=== PATIENT | female | born 1980 | race Two or more races ===

== ENCOUNTER 2016-08-09 23:02 | Inpatient (IN) | payer OTHER, MEDICAID ==
[2016-08-10] MEDS ORDERED: IV START KIT ONE (00:35)
[2016-08-10] MEDS ORDERED: OXYTOCIN IN LR 500 ML IV ONE (00:35)
[2016-08-10] MEDS ORDERED: OXYTOCIN 10 UNITS/ML VIAL ONE (00:35)
[2016-08-10] MEDS ORDERED: LACTATED RINGERS 1,000 ML ONE (00:36)
[2016-08-10] MEDS ORDERED: LIDOCAINE 1% (PRES FREE) 30 ML VIAL ONE (00:36)
[2016-08-10] MEDS ORDERED: PUMP TUBING ONE (00:36)
[2016-08-10] MEDS ORDERED: MINERAL OIL 25 ML BOT ONE (00:36)
[2016-08-10] MEDS ORDERED: LIDOCAINE Viscous 2% 15 ML UDCUP ONE (00:36)
[2016-08-10 01:46] VITALS: BMI 28.5
[2016-08-10 01:52] LABS: HEMATOCRIT 38.8 % (37.0-47.0); HEMOGLOBIN 12.6 gm/l (12.0-16.0); MEAN CORPUSCULAR HEMOGLOBIN 29.2 pg (27.0-31.0); MEAN CORPUSCULAR HGB CONC 32.5 g/dl (33.0-37.0); RED CELL DISTRIBUTION WIDTH 15.3 % (11.5-14.5)
[2016-08-10] MEDS: LACTATED RINGERS 1,000 ML IV PRN ×2 (02:00→07:42)
[2016-08-10] MEDS ORDERED: FENTANYL 100 MCG/2 ML VIAL IV ONE (04:00)
[2016-08-10] MEDS ORDERED: FENTANYL/ROPIVACAINE EPIDURAL 250 ML EP ONE ×2 (04:01→07:09)
[2016-08-10] MEDS ORDERED: FENTANYL/ROPIVACAINE EPIDURAL 250 ML EP SCH (06:00)
[2016-08-10] MEDS ORDERED: FENTANYL 100 MCG/2 ML VIAL IV PRN (06:09)
--- NOTE | 2016-08-10 06:35 | PCMAN ---
OB Admission Note - History : 4 Term: 2 : 0 Abortions (S&E): 1 Livin Gestational Age (weeks): 39 Days (#/7): 0 Admit Cervical Dilation:: 5 Admit Cervical Effacement (%):: 80 Admit Station:: -1 Admit Presentaton:: vtx Membrane Status: Intact Rupture (Date): 08/10/16 Rupture (Time): 06:05 Membranes Comment:: clear Labor Onset (Date): 08/09/16 Labor Onset (Time): 02:20 Contractions: Yes Contraction Frequency:: 1.5-2 Heart Rate:: 140 Status:: category 1-2 EFW:: 7 Summary of Course:: She had history of miscarriage in 2016 and some early spotting during this so she was ultrasounded at 5 weeks and no heart tones were seen, repeated 11 days later and heart tones were seen. Due date predicted at by the first viable US and confirmed by subsequent US so would use that for dating. She had some contractions at 34 1/2 weeks of that required her to be transferred to [facility] and she received 2 doses of Betamethasone with that incident. FFN was negative but her cervical length was abnormal and it felt like her cervix was changing with those contractions resulting in the transfer. also complicated by Iron deficiency anemia requiring Iron infusion. - Labs Blood Type: A (+) positive Hct/Hgb:: 38.8/12.6 Rubella Status: Immune GBS Status: Negative Abnormal Labs: None (1 HR GTT Glucose 109) - Physical Exam General: Afebrile, No Acute Distress Psych/Mental Status: Mood/Affect Appropriate, Judgment/Insight Intact Neurological: Grossly Intact, Alert, Oriented x 4, Normal Speech, Normal Reflexes, Cranial Nerves 3-12 Intact HEENT: Atraumatic, PERRLA, EOMI, Mucous membr. moist/pink Lungs: Clear to Auscultation Bilaterally Cardiovascular: Regular Rate and Rhythm, No Murmur Abdomen: Normal Bowel Sounds Genitourinary: Normal Female Genitalia Extremities: Full ROM DTR: Patellar (L): 2+ (Brisk, Normal), Patellar (R): 2+ (Brisk, Normal) Skin: Normal Color, Warm, Dry, Intact, No Rash - Problems (1) with 39 completed weeks gestation Status: Acute Code: Z3A.39 Assessment/Plan: in early labor. Expect (2) Anemia affecting in second trimester Status: Acute Code: O99.012 Assessment/Plan: improved on admission CBC.
[2016-08-10] MEDS ORDERED: EPIDURAL PUMP SET ONE (07:08)
[2016-08-10] MEDS ORDERED: EPIDURAL PROCEDURE TRAY ONE (07:08)
[2016-08-10] MEDS ORDERED: EPHEDRINE SULFATE 50 MG/ML 1ML VIAL IV PRN (07:20)
[2016-08-10] MEDS ORDERED: SODIUM CHLORIDE 0.9% 500 ML IV PRN (07:20)
[2016-08-10] MEDS ORDERED: LACTATED RINGERS 1,000 ML IV SCH (07:20)
[2016-08-10] MEDS ORDERED: NALBUPHINE HCL 20 MG/ML AMP IV PRN (07:20)
[2016-08-10] MEDS ORDERED: ONDANSETRON 4 MG/2ML 2 ML VIAL IV PRN (07:20)
[2016-08-10] MEDS ORDERED: LACTATED RINGERS 500 ML IV PRN (07:20)
[2016-08-10] MEDS ORDERED: NALOXONE HCL 0.4 MG/ML VIAL IV PRN (07:20)
[2016-08-10] MEDS ORDERED: DIPHENHYDRAMINE HCL 50 MG/1 ML VIAL IV PRN (07:20)
[2016-08-10] MEDS ORDERED: METOCLOPRAMIDE HCL 5 MG/ML 2ML VIAL IV PRN (07:20)
--- NOTE | 2016-08-10 10:21 | PCMDEL ---
Delivery Note - Labor 1st stage (hr/min):: 3 hr/31 min 2nd stage (hr/min):: 14 min 3rd stage (hr/min):: 6 min Total (hr/min):: 3 hr/51 min Pushed (hr/min):: 8 min - Delivery Delivery (Date): 08/10/16 Delivery (Time): 09:33 Infant Gender: Female Presentation: Cephalic Position: OA Umbilical Cord: 3 Vessel Delayed Cord Clamping:: > 3 min 1 Minute Total: 9 5 Minute Total: 9 Placenta:: intact EBL:: 300 ml Perineum:: intact Suture:: N/A Anesthesia/Meds:: Epidural Length ROM:: 3 hr/ 31 min Comments:: Beautiful, uncomplicated vaginal delivery
[2016-08-10] MEDS ORDERED: OXYCODONE HCL 5 MG TABLET PO PRN (10:35)
[2016-08-10] MEDS ORDERED: LANOLIN 50 APPLIC/7G TUBE TP PRN (10:35)
[2016-08-10] MEDS ORDERED: BENZOCAINE/MENTHOL 60 APPLIC/BOT TP PRN (10:35)
[2016-08-10] MEDS ORDERED: DOCUSATE SODIUM 100 MG CAPSULE PO PRN (10:35)
[2016-08-10] MEDS ORDERED: ACETAMINOPHEN 325 MG TABLET PO PRN (10:35)
[2016-08-10] MEDS ORDERED: CALCIUM CARBONATE 500 MG TAB.CHEW PO PRN (10:35)
[2016-08-10] MEDS: IBUPROFEN 800 MG TABLET PO PRN (17:51)
[2016-08-10] MEDS: OXYCODONE/ACETAMINOPHEN 5/325 MG TABLET PO PRN (19:34)
[2016-08-11] MEDS: OXYCODONE/ACETAMINOPHEN 5/325 MG TABLET PO PRN (05:21)
[2016-08-11] MEDS: IBUPROFEN 800 MG TABLET PO PRN (05:21)
[2016-08-11 06:50] LABS: HEMATOCRIT 32.6 % (37.0-47.0); HEMOGLOBIN 10.6 gm/l (12.0-16.0)
[2016-08-11 07:29] VITALS: BP 101/65
--- NOTE | 2016-08-11 07:33 | PDOC39B ---
Hospital Course: ADMIT DATE: 08/09/16 DISCHARGE DATE: 08/11/16 ADMISSION DIAGNOSES: 39 week PROCEDURES: Spontaneous Vaginal Delivery HISTORY OF PRESENT ILLNESS: 35 year old G4 T2 L2 at 39 weeks 0 days presenting with spontaneous labor, required 2 doses Fentanyl and epidural for pain management. Labor became much more active after AROM and she had an uncomplicated vaginal delivery. HOSPITAL COURSE: The patient had an unremarkable post course. By day of discharge the patient is ambulating, eating, voiding, and passing flatus without difficulty. Pain is controlled and lochia is appropriate. She is [] - Physical Exam Vital Signs: Temp Pulse Resp BP Pulse Ox 98.2 F 72 16 97/53 08/11/16 01:50 08/11/16 01:50 08/11/16 01:50 08/11/16 01:50 General: Afebrile, No Acute Distress Psych/Mental Status: Mood/Affect Appropriate Neurological: Grossly Intact, Alert, Oriented x 4, Normal Speech, Normal Reflexes, Cranial Nerves 3-12 Intact HEENT: Atraumatic, PERRLA, EOMI, Mucous membr. moist/pink Lungs: Clear to Auscultation Bilaterally Cardiovascular: Regular Rate and Rhythm, No Murmur Breast: Soft, Nipples Intact, No Nipples Cracked Fundus: Firm, Midline, At Umbilicus Abdomen: Normal Bowel Sounds Genitourinary: Normal Female Genitalia Lochia: Light Extremities: Full ROM, No Edema Deep Tendon Reflexes: Patellar (L): 2+ (Brisk, Normal), Patellar (R): 2+ (Brisk , Normal) Skin: Normal Color, Warm, Dry, Intact, No Rash Wound: Dressing Clean/Dry/Intact - Discharge Diagnosis (1) Normal vaginal delivery Status: Acute Assessment/Plan: stable, discharge home, FU 6 weeks - Discharge Plan Condition: Good Disposition: Home Instruction Forms: Vaginal Discharge Instructions Prescriptions: Ibuprofen [IBUPROFEN 800 MG TABLET (SHF)] 800 mg PO Q6H PRN #30 tablet PRN Reason: Pain (Mild) Oxycodone HCl/Acetaminophen [PERCOCET 5/325 MG TABLET (SHF)] 1 - 2 tab PO Q4H PRN #20 tablet PRN Reason: Pain (Moderate) Cholecalciferol (Vitamin D3) [Vitamin D3] 5,000 units PO X1 #100 capsule
[2016-08-11] MEDS ORDERED: PRENATAL VIT/FE FUMARATE/FA 1 TABLET PO SCH (09:00)
== END 2016-08-11 11:56 | disposition home or self-care (01) | DRG 775 ==
LOC: FBCOUT 23:02 → FBC 23:02 → FBCOUT 23:49 → FBC 23:49
PROVIDERS: ADMIT Family Medicine; ATTEND Family Medicine
PROC: 10E0XZZ Delivery of Products of Conception, External Approach (ICD-10-PCS; principal; 2016-08-10)
PROC: 10907ZC Drainage of Amniotic Fluid, Therapeutic from Products of Conception, Via Natural or Artificial Opening (ICD-10-PCS; 2016-08-10)
DX: O99.02 Anemia complicating childbirth (principal); D50.9 Iron deficiency anemia, unspecified; Z3A.39 39 weeks gestation of pregnancy; Z37.0 Single live birth